=== PATIENT | female | born 1995 | race Caucasian/White ===

== ENCOUNTER 2016-08-27 19:37 | Inpatient (IN) | payer BC ==
[2016-08-27] MEDS ORDERED: CERVIDIL VG ONE (20:47)
[2016-08-27] MEDS ORDERED: LACTATED RINGERS 1,000 ML IV SCH (21:00)
[2016-08-27 21:51] LABS: Hematocrit 35.7 % (30.3-42.9); Mean Corpuscular HGB Conc 34 % (30-34); Mean Corpuscular Hemoglobin 30 pg (28-32); Mean Corpuscular Volume 90 fl (79-97); Platelet Count 209 K/mm3 (140-440); Red Blood Count 3.98 M/mm3 (3.65-5.03); Red Cell Distribution Width 13.9 % (13.2-15.2); White Blood Count 11.1 K/mm3 (4.5-11.0)
[2016-08-28] MEDS ORDERED: NARCAN 0.4 MG/1 ML IV PRN (08:30)
[2016-08-28] MEDS ORDERED: ePHEDrine SULFATE IV PRN ×2 (08:30→17:52)
--- NOTE | 2016-08-28 08:37 | History and Physical Report ---
History of Present Illness Date of examination: 08/28/16 Date of admission: 08/27/16 19:37 History of present illness: 21 yo LMP EDC 08/20/16 @ 41.1 weeks gestation, presented for induction of labor during the night. Received Cervidil during the night. Now 50/-2/vtx. First trimester entry into care at 7 weeks gestation. course complicated by morbid obesity with early GTT of 128. First trimester bleeding with spont. resolution. +Chlamydia with treatment and negative ESTHELA. Seen by [facility] for morbid obesity and limited anatomy views on U/S. Voiced good FM, denies vaginal bleeding. She is GBS negative. 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 12/29/15 Unknown Rx [Yonas Doan 10-10 mg Tablet] Vit W-Ca,Fe,FA(<1 mg) 1 each PO QDAY #30 tablet 12/29/15 Unknown Rx [ Vitamins] Active Meds: Active Medications Butorphanol Tartrate (Stadol) 2 mg IV Q2H PRN PRN Reason: Pain , Severe (7-10) Ephedrine Sulfate (Ephedrine Sulfate) 10 mg IV Q2M PRN PRN Reason: Hypotension Stop: 08/29/16 10:00 Fentanyl (Sublimaze) 100 mcg IV Q2HR PRN PRN Reason: Pain Lactated Ringer's (Lactated Ringers) 1,000 mls @ 125 mls/hr IV DIRECT MARLY Last Admin: 08/27/16 21:39 Dose: 125 mls/hr Lactated Ringer's (Lactated Ringers) 1,000 mls @ 125 mls/hr IV DIRECT MARLY Oxytocin/Sodium Chloride (Pitocin/Ns 20 Unit/1000ml Drip) 20 units in 1,000 mls @ 125 mls/hr IV DIRECT MARLY Oxytocin/Sodium Chloride (Pitocin/Ns 30 Unit/500ml) 30 units in 500 mls @ 4 mls /hr IV TITR MARLY PRN Reason: Protocol Lidocaine (Xylocaine 2%) 20 ml INFILTRATI ONCE ONE Stop: 08/28/16 09:01 Mineral Oil (Mineral Oil) 30 ml PO QHS PRN PRN Reason: Constipation Misoprostol (Cytotec) 25 mcg VAGINAL ONCE ONE Stop: 08/28/16 09:31 Misoprostol (Cytotec) 25 mcg VAGINAL ONCE ONE Stop: 08/28/16 09:31 Naloxone HCl (Narcan 0.4 Mg/1 Ml) 0.1 mg IV Q2MIN PRN PRN Reason: Res Rate </= 8 or 02 SAT < 92% Ondansetron HCl (Zofran) 4 mg IV Q8H PRN PRN Reason: Nausea And Vomiting Terbutaline Sulfate (Brethine) 0.25 mg SUB-Q ONCE PRN PRN Reason: Hyperstimulation/Hypertonicity Stop: 08/28/16 07:57 Terbutaline Sulfate (Brethine) 0.25 mg IVP ONCE PRN PRN Reason: Hyperstimulation/Hypertonicity Stop: 08/28/16 07:57 Review of Systems All systems: negative Genitourinary: normal appearance, leakage of fluid (AROM meconium fluid), contractions, no vaginal bleeding - Vital Signs Vital signs: Vital Signs Temp Pulse Resp BP Pulse Ox 97.9 F 95 H 18 121/71 97 08/27/16 20:26 08/27/16 20:26 08/27/16 20:26 08/27/16 20:26 08/27/16 20:26 Temp Pulse Resp BP Pulse Ox 97.6 F 94 H 16 127/73 95 08/28/16 08:05 08/28/16 08:21 08/28/16 08:05 08/28/16 08:05 08/28/16 08:21 - Physical Exam Breasts: Positive: deferred Abdomen: Positive: normal appearance, soft Genitourinary (Female): Positive: normal external genitalia, normal perenium Vulva: both: normal - Obstetrical FHR: category 1 Uterine Contraction Monitor Mode: External Cervical Dilatation: 3 Cervical Effacement Percentage: 50 station: -2 Uterine Contraction Frequency (min): irregular Uterine Contraction Pattern: Regular Uterine Tone Measurement Phase: Resting Uterine Contraction Intensity: Moderate Results Result Diagrams: 08/27/16 21:15 Abnormal lab results 08/27/16 Range/Units 21:15 WBC 11.1 H (4.5-11.0) K/mm3 All other labs normal. Assessment and Plan A: IUP at 41.1 weeks gestation Induction of Labor Latent labor Morbid Obesity P: AROM-meconium fluid Active chayo't Pitocin
[2016-08-28] MEDS ORDERED: XYLOCAINE 2% INFILTRATI ONE ×2 (09:00→21:53)
[2016-08-28] MEDS ORDERED: PITOCin/NS 20 UNIT/1000ML DRIP 20 UNITS/1,000 ML BAG IV SCH (09:00)
[2016-08-28] MEDS ORDERED: BRETHINE SUB-Q PRN ×2 (09:00→21:53)
[2016-08-28] MEDS ORDERED: ZOFRAN IV PRN (09:00)
[2016-08-28] MEDS ORDERED: BRETHINE IVP PRN ×2 (09:00→21:53)
[2016-08-28] MEDS ORDERED: MINERAL OIL PO PRN (09:00)
[2016-08-28] MEDS: PITOCin/NS 30 UNIT/500ML 30 UNITS/500 ML BAG IV SCH ×4 (09:23→11:51)
[2016-08-28] MEDS ORDERED: CYTOTEC VAGINAL ONE ×2 (09:30)
[2016-08-28] MEDS: LACTATED RINGERS 1,000 ML IV SCH ×2 (11:11→18:28)
[2016-08-28] MEDS: SUBLIMAZE IV PRN ×2 (11:53→16:30)
[2016-08-28] MEDS: STADOL IV PRN ×2 (13:15→14:26)
--- NOTE | 2016-08-28 13:52 | Event Note ---
Date: 08/28/16 Pain with contractions, medicated twice. Decline epidural Category 1 tracing UC: difficult to monitor secondary to maternal habitus> IUPC placed SVE 4cm/60/-2. Pitocin @ 20mu
[2016-08-28] MEDS ORDERED: fentaNYL-BUPIV 2 MCG/ML-0.125% 200 MCG/100 ML BAG EPIDURAL ONE (17:10)
[2016-08-28] MEDS ORDERED: NARCAN 2 MG/2 ML IV PRN (17:52)
--- NOTE | 2016-08-28 17:52 | Anesthesia Consultation ---
Anesthesia Consult and Med Hx Date of service: 08/28/16 - Airway Anesthetic Teeth Evaluation: Good ROM Head & Neck: Adequate Mental/Hyoid Distance: Adequate Mallampati Class: Class II Intubation Access Assessment: Possibly Difficult - Pulmonary Exam CTA: Yes - Cardiac Exam Cardiac Exam: RRR - Pre-Operative Health Status ASA Pre-Surgery Classification: ASA3 Proposed Anesthetic Plan: Epidural (labor epidural - primary ) - Pulmonary Hx Asthma: No COPD: No Hx Pneumonia: No - Cardiovascular System Hx Hypertension: No - Central Nervous System Hx Seizures: No Hx Psychiatric Problems: No - Endocrine Hx Renal Disease: No Hx End Stage Renal Disease: No Hx Hypothyroidism: No Hx Hyperthyroidism: No - Hematic Hx Anemia: No Hx Sickle Cell Disease: No - Other Systems Hx Alcohol Use: Yes Hx Obesity: Yes (morbid obesity)
[2016-08-28] MEDS ORDERED: fentaNYL-BUPIV 2 MCG/ML-0.125% 200 MCG/100 ML BAG EPIDURAL SCH (18:00)
[2016-08-28] MEDS ORDERED: LACTATED RINGERS 1,000 ML IV SCH (22:00)
--- NOTE | 2016-08-28 22:25 | Event Note ---
Date: 08/28/16 Pt comfortable with epidural. Category II tracing with FHT 180 with minimal variability and early decels. SVE: 10/100/0. Contractions q 2-4 minutes. Resuscitative measures performed including fluid bolus and oxygen supplementation. Closely monitor maternal and status.
[2016-08-28] MEDS ORDERED: PEPCID IV ONE (22:51)
[2016-08-28] MEDS ORDERED: BICITRA ONE (22:51)
[2016-08-28] MEDS ORDERED: REGLAN ONE (22:51)
--- NOTE | 2016-08-28 22:57 | Anesthesia Day of Surgery ---
Anesthesia Day of Surgery - Day of Surgery Patient Examined: Yes Patient H&P Reviewed: Yes Patient is NPO: Yes
[2016-08-28] MEDS ORDERED: MORPHINE ONE ×2 (23:01)
[2016-08-28] MEDS ORDERED: XYLOCAINE MPF 2% ONE ×2 (23:01→23:39)
[2016-08-28] MEDS ORDERED: NACL 0.9% IR ONE (23:10)
[2016-08-28] MEDS ORDERED: WATER FOR IRRIG STERILE IR ONE (23:10)
[2016-08-28] MEDS ORDERED: ZOFRAN ONE (23:24)
[2016-08-28] MEDS ORDERED: VERSED ONE (23:57)
[2016-08-29] MEDS ORDERED: SUBLIMAZE ONE ×2 (00:03→00:08)
[2016-08-29] MEDS ORDERED: XYLOCAINE MPF 2% ONE (00:04)
--- NOTE | 2016-08-29 01:03 | Procedure Note ---
OB Delivery Note - Delivery Date of Delivery: 08/29/16 Surgeon: NINO MCGEE Estimated blood loss: other (1200 mL) - Section Preop diagnosis: arrest of descent, nonreassuring FHR tracing Postop diagnosis: same section procedure: section, primary low transverse Disposition: PACU Complications: intra-op hemorrhage, uterine atony - A at 1 minute: 2 at 5 minutes: 2 Infant Gender: Male
--- NOTE | 2016-08-29 01:04 | Operative Report ---
Operative Report Operative Report: Date of procedure: August 28, 2016 Preoperative diagnosis: 1) IUP at 41w1d 2) Tachycardia 3) Arrest of Descent 4) Morbid Obesity Postoperative diagnosis: Same 5) Cephalopelvic disproportion Procedure: Primary low transverse section Surgeon: Dayna Parry M.D. Anesthesia: Epidural Findings: 1) Viable male , Apgars 2 and 2, weight pending. Occiput posterior, neck extended; nuchal cord x 1 2) Normal-appearing uterus ovaries and tubes Estimated blood loss: 1200 mL Drains: [place] to gravity Specimens: Placenta to pathology Complications:Uterine atony requiring additional 20 units of pitocin in the IVFs Disposition: Stable to PACU Indication for procedure: Pt is a 21 year old at 41w1d who was admitted on 08/27/16 for induction of labor secondary to postdates. She progressed to complete through a protracted labor course, but arrested at 0 station. Both fetus and mother were noted to be tachycardic so the decision was made to proceed with primary delivery. Operation in detail: After the risks, benefits, alternatives and complications were explained to the patient she gave informed consent for the procedure. She was subsequently taken to the operating room where epidural anesthesia was noted to be adequate. She was subsequently placed in the dorsal supine position with leftward tilt and prepped and draped in a normal sterile fashion. heart tones were noted to be in the 180s prior to incision. A timeout was performed. A Pfannenstiel skin incision was made with the knife and carried down to the layer of the fascia with the Bovie. The fascia was incised in the midline and the fascial incision was extended bilaterally with the Bovie. Attention was then turned to the superior aspect of the incision which was grasped with two Kochers, tented up, and dissected off the rectus muscles. Attention was then turned to the inferior aspect of the incision which was grasped with two Kochers , tented up and dissected off the rectus muscles. The rectus muscles were then in the midline and partially transected for adequate visualization. The peritoneum was then entered sharply between to Steff clamps. The peritoneal incision was extended with good visualization of the bladder. The peritoneal incision was then stretched. An Renaldo self-retaining retractor was placed for visualization. The bladder blade was placed. The vesicouterine peritoneum was grasped with smooth pickups and incised with Metzenbaum scissors. Metzenbaum scissors were used to extend the incision bilaterally. The bladder flap was then created digitally and the bladder blade was replaced. A transverse incision was made in the lower uterine segment with a knife and extended bilaterally with the bandage scissors. Multiple attempts were made to deliver the head without success. The uterus was incised in a vertical fashion and the skin incision was extended with the knife. A vaginal hand was used in an attempt to elevate the head. Dr. Martha Patel was called in to assist with the case. After multiple attempts, the 's head was delivered followed by shoulders and body. The cord was clamped and cut and the was handed to NICU staff in attendance. Cord blood was collected. The placenta was then delivered manually. The uterus was then cleared of all clots and debris. The hysterotomy was then reapproximated with 0 Vicryl in a running locked fashion. A second layer of the same suture was used in imbricating fashion. The vertical extension of the incision was reapproximated wtih 0-Vicryl in a running locked fashion. The hysterotomy was inspected and hemostasis was noted. The Renaldo self-retaining retractor was removed. The gutters were irrigated and cleared of all clots and debris. The hysterotomy was again inspected and noted to be hemostatic. Surgicel was placed over the hysterotomy. The peritoneum was reapproximated with 2-0 Vicryl in a running fashion. The rectus muscles were then reapproximated with 2-0 Vicryl in an interrupted fashion and covered with Surgicel. The fascia was reapproximated with 0 Vicryl in a running fashion. The subcutaneous fat was reapproximated with 3-0 Vicryl in a running fashion. The skin was reapproximated with 4-0 Vicry in a subcuticular fashion. The incision was then covered with steri strips and a pressure dressing. The procedure was then ended. The patient tolerated the procedure well and was taken to the PACU in stable condition. All instrument, lap, and needle counts were correct 3.
--- NOTE | 2016-08-29 01:23 | Post Anesthesia Evaluation ---
- Post Anesthesia Evaluation Patient Participated: Yes Airway Patent: Yes Stable Respiratory Function: Yes Nausea/Vomiting: No Temp > 96.8F: Yes Pain Manageable: Yes Adequeate Hydration: Yes Anesthesia Complications: No Block Receding Appropriately: Yes Patient on Ventilator: No
[2016-08-29] MEDS ORDERED: DILAUDID IV PRN (01:24)
[2016-08-29] MEDS ORDERED: NORCO 7.5/325 PO PRN (01:24)
[2016-08-29] MEDS: CLEOCIN 900 MG/50 mL 900 MG/50 ML BAG IV SCH ×3 (03:00→20:18)
[2016-08-29] MEDS: POLYCILLIN/NS 2 GM/100 ML 2 GM/100 ML BAG IV SCH ×4 (03:00→21:13)
[2016-08-29] MEDS ORDERED: GARAMYCIN/NS 80 MG/100 ML 100 ML IV SCH (03:00)
[2016-08-29 04:08] LABS: Hematocrit 32.6 % (30.3-42.9); Hemoglobin 10.9 gm/dl (10.1-14.3); Mean Corpuscular HGB Conc 33 % (30-34); Mean Corpuscular Hemoglobin 30 pg (28-32); Mean Corpuscular Volume 90 fl (79-97); Platelet Count 203 K/mm3 (140-440); Red Blood Count 3.61 M/mm3 (3.65-5.03); Red Cell Distribution Width 13.7 % (13.2-15.2)
[2016-08-29 04:14] LABS: White Blood Count 28.8 K/mm3 (4.5-11.0)
[2016-08-29 04:17] LABS: INR 1.1 (0.87-1.13); Partial Thromboplastin Time 28.8 Sec. (24.2-36.6)
[2016-08-29] MEDS: GARAMYCIN 140 MG in NACL 0.9% 100 ML IV SCH ×2 (04:50→22:32)
[2016-08-29 06:45] LABS: Basophils % (Manual) 0 % (0.0-1.8); Blastocytes % (Manual) 0 %; Eosinophils % (Manual) 0 % (0.0-4.3); Platelet Estimate Consistent w Auto
[2016-08-29 06:46] LABS: Diff Status Complete
--- NOTE | 2016-08-29 08:30 | Event Note ---
Date: 08/29/16 Attempted to visit patient and family this morning. Bopth FOB and patient resting and snoring with eyes closed. Will attempt when awake or on lunch break.
--- NOTE | 2016-08-29 09:13 | Progress Note ---
Assessment and Plan VSS AF PP H/H: A: Stable 9 hrs PO primary caesarean section Anemia P: Routine orders Subjective - Subjective Date of service: 08/29/16 Interval history: 21 yo LMP EDC 08/20/16 @ 41.1 weeks gestation, presented for induction of labor during the night. Received Cervidil during the night. Now 350/-2/vtx. First trimester entry into care at 7 weeks gestation. course complicated by morbid obesity with early GTT of 128. First trimester bleeding with spont. resolution. +Chlamydia with treatment and negative ESTHELA. Seen by [facility] for morbid obesity and limited anatomy views on U/S. Voiced good FM, denies vaginal bleeding. She is GBS negative. Patient reports: appetite normal, pain well controlled (tai present and patent. No up at time of visit or ambulating), no flatus, no ambulating normally , no nauseated [place]: in NICU Objective - Vital Signs Latest vital signs: Vital Signs Temp Pulse Pulse Resp BP BP Pulse Ox 08/29/16 04:10 99.1 F 119 H 20 127/74 08/29/16 02:15 132 H 20 121/71 95 08/29/16 02:00 127 H 20 119/66 95 08/29/16 01:45 132 H 20 119/70 95 08/29/16 01:34 20 08/29/16 01:25 129 H 20 136/78 94 08/29/16 01:20 98.8 F 127 H 20 134/79 98 08/29/16 01:15 121 H 20 144/80 98 08/29/16 01:13 100.3 F H 124 H 24 141/79 98 08/28/16 22:58 138 H 98 08/28/16 22:53 132 H 100 08/28/16 22:48 132 H 100 08/28/16 22:43 125 H 100 08/28/16 22:38 118 H 99 08/28/16 22:33 127 H 100 08/28/16 22:32 132 H 87 08/28/16 22:30 98.9 F 122 H 18 100 08/28/16 22:28 122 H 100 08/28/16 22:23 117 H 100 08/28/16 22:18 115 H 100 08/28/16 22:13 110 H 100 08/28/16 22:09 114 H 135/68 08/28/16 22:08 117 H 100 08/28/16 22:06 125 H 144/92 08/28/16 22:03 120 H 100 08/28/16 21:58 130 H 100 08/28/16 21:53 125 H 100 08/28/16 21:48 126 H 100 08/28/16 21:43 128 H 98 08/28/16 21:38 118 H 98 08/28/16 21:33 117 H 99 08/28/16 21:28 113 H 100 08/28/16 21:23 116 H 100 08/28/16 21:18 112 H 99 08/28/16 21:13 112 H 100 08/28/16 21:08 112 H 100 08/28/16 21:03 112 H 100 08/28/16 20:58 113 H 100 08/28/16 20:53 111 H 100 08/28/16 20:48 104 H 100 08/28/16 20:43 109 H 99 08/28/16 20:38 106 H 98 08/28/16 20:33 108 H 100 08/28/16 20:28 115 H 98 08/28/16 20:23 112 H 99 08/28/16 20:18 101 H 100 08/28/16 20:13 101 H 98 08/28/16 20:08 104 H 96 08/28/16 20:03 98 H 97 08/28/16 19:58 98 H 97 08/28/16 19:53 93 H 97 08/28/16 19:48 100 H 97 08/28/16 19:43 99 H 96 08/28/16 19:38 105 H 96 08/28/16 19:33 98 H 97 08/28/16 19:28 95 H 96 08/28/16 19:23 95 H 96 08/28/16 19:19 98.5 F 97 H 18 148/84 97 08/28/16 19:18 100 H 96 08/28/16 19:13 96 H 96 08/28/16 19:08 99 H 95 08/28/16 19:04 99 H 94 08/28/16 19:03 95 H 95 08/28/16 18:58 101 H 94 08/28/16 18:57 99 H 94 08/28/16 18:53 98 H 95 08/28/16 18:48 99 H 95 08/28/16 18:44 103 H 94 08/28/16 18:43 101 H 95 08/28/16 18:38 100 H 96 08/28/16 18:33 100 H 96 08/28/16 18:28 96 H 95 08/28/16 18:23 105 H 96 08/28/16 18:18 97 H 95 08/28/16 18:13 104 H 95 08/28/16 18:08 107 H 96 08/28/16 18:04 111 H 148/84 08/28/16 18:03 116 H 96 08/28/16 18:01 94 H 68 L 08/28/16 17:58 104 H 97 08/28/16 17:56 108 H 94 08/28/16 17:53 105 H 96 08/28/16 17:49 105 H 94 08/28/16 17:48 108 H 96 08/28/16 17:43 115 H 95 08/28/16 17:38 120 H 96 08/28/16 17:34 110 H 121/72 94 08/28/16 17:33 117 H 96 08/28/16 17:09 104 H 97 08/28/16 17:04 105 H 98 08/28/16 16:59 106 H 86 08/28/16 16:54 109 H 93 08/28/16 16:53 105 H 94 08/28/16 16:49 99 H 96 08/28/16 16:44 99 H 95 08/28/16 16:43 97 H 94 08/28/16 16:39 104 H 93 08/28/16 16:37 105 H 94 08/28/16 16:34 106 H 95 08/28/16 16:30 101 H 18 94 08/28/16 16:29 108 H 95 08/28/16 16:24 105 H 96 08/28/16 16:22 104 H 94 08/28/16 16:19 104 H 96 08/28/16 16:16 111 H 94 08/28/16 16:14 99 H 96 08/28/16 16:11 97 H 93 08/28/16 16:09 107 H 96 08/28/16 16:04 107 H 96 08/28/16 16:02 102 H 94 08/28/16 15:59 105 H 96 08/28/16 15:54 105 H 95 08/28/16 15:53 68 76 L 08/28/16 15:47 104 H 96 08/28/16 15:46 101 H 94 08/28/16 15:42 107 H 97 08/28/16 15:37 106 H 97 08/28/16 15:32 111 H 94 08/28/16 15:27 102 H 97 08/28/16 15:26 103 H 93 08/28/16 15:22 101 H 96 08/28/16 15:17 103 H 97 08/28/16 15:12 107 H 98 08/28/16 15:10 115 H 94 08/28/16 15:07 114 H 98 08/28/16 15:02 116 H 97 08/28/16 14:57 105 H 96 08/28/16 14:52 112 H 97 08/28/16 14:48 105 H 93 08/28/16 14:47 104 H 95 08/28/16 14:42 111 H 92 08/28/16 14:37 107 H 93 08/28/16 14:36 102 H 94 08/28/16 14:32 106 H 95 08/28/16 14:28 106 H 94 08/28/16 14:27 108 H 95 08/28/16 14:26 18 08/28/16 14:23 106 H 94 08/28/16 14:22 101 H 97 08/28/16 14:17 100 H 96 08/28/16 14:13 105 H 94 08/28/16 14:12 101 H 95 08/28/16 14:07 97.9 F 85 18 125/88 86 08/28/16 14:02 108 H 93 08/28/16 13:59 104 H 94 08/28/16 13:57 109 H 93 08/28/16 13:54 106 H 94 08/28/16 13:52 106 H 95 08/28/16 13:48 109 H 94 08/28/16 13:47 104 H 96 08/28/16 13:45 18 08/28/16 13:42 96 H 97 08/28/16 13:40 104 H 94 08/28/16 13:37 103 H 96 08/28/16 13:32 105 H 94 08/28/16 13:31 108 H 94 08/28/16 13:27 107 H 94 08/28/16 13:25 108 H 94 08/28/16 13:22 108 H 92 08/28/16 13:19 108 H 94 08/28/16 13:17 109 H 93 08/28/16 13:15 18 08/28/16 13:14 106 H 94 08/28/16 13:12 106 H 94 08/28/16 13:07 102 H 94 08/28/16 13:02 104 H 93 08/28/16 13:01 101 H 116/66 93 08/28/16 12:57 101 H 96 08/28/16 12:52 99 H 97 08/28/16 12:47 102 H 96 08/28/16 12:42 97 H 96 08/28/16 12:37 102 H 96 08/28/16 12:32 97 H 94 08/28/16 12:27 99 H 94 08/28/16 12:26 100 H 94 08/28/16 12:22 104 H 95 08/28/16 12:21 98 H 94 08/28/16 12:17 100 H 94 08/28/16 12:13 98 H 94 08/28/16 12:12 99 H 95 08/28/16 12:07 99 H 95 08/28/16 12:02 102 H 95 08/28/16 12:01 100 H 94 08/28/16 11:57 109 H 95 08/28/16 11:56 102 H 94 08/28/16 11:53 18 08/28/16 11:52 95 H 96 08/28/16 11:51 101 H 94 08/28/16 11:47 102 H 96 08/28/16 11:42 91 H 97 08/28/16 11:34 99 H 93 08/28/16 11:32 111 H 96 08/28/16 11:27 96 H 95 08/28/16 11:22 97 H 96 08/28/16 11:17 104 H 95 08/28/16 11:16 100 H 94 08/28/16 11:12 95 H 98 08/28/16 11:08 98 H 94 08/28/16 11:07 96 H 94 08/28/16 11:02 90 133/73 96 08/28/16 10:57 95 H 97 08/28/16 10:52 100 H 96 08/28/16 10:47 104 H 97 08/28/16 10:42 97 H 96 08/28/16 10:37 101 H 97 08/28/16 10:32 104 H 95 08/28/16 10:27 105 H 94 08/28/16 10:22 94 H 94 08/28/16 10:16 105 H 96 08/28/16 10:12 106 H 94 08/28/16 10:11 109 H 95 08/28/16 10:06 108 H 96 08/28/16 10:01 110 H 97 08/28/16 09:56 99 H 96 08/28/16 09:51 106 H 97 08/28/16 09:46 98 H 96 08/28/16 09:41 110 H 96 08/28/16 09:36 97 H 97 08/28/16 09:31 98 H 97 08/28/16 09:26 102 H 97 08/28/16 09:22 109 H 126/75 94 08/28/16 09:21 110 H 97 08/28/16 09:16 111 H 97 08/28/16 09:11 101 H 98 Intake and Output 08/28/16 08/29/16 08/29/16 22:59 06:59 14:59 Intake Total 1240 2525 Output Total 350 1000 Balance 890 1525 Intake: IV 1000 2525 Garamycin 140 mg In NaCl 100 0.9% 100 ml @ 200 mls/hr IV Q8H MARLY Rx#:[id number] Lactated Ringers 1,000 ml 1000 @ 125 mls/hr IV DIRECT MARLY Rx#:[id number] PITOCin/NS 20 UNIT/1000ML 125 DRIP 20 units In 1,000 ml @ 125 mls/hr IV DIRECT MARLY Rx#:[id number] Oral 240 Output: Urine 350 1000 Uretheral (Tai) 400 Void 350 Other: Total, Intake Amount 240 Total, Output Amount 350 Estimated Blood Loss 1,500 - Exam Breasts: Present: deferred Cardiovascular: Present: Regular rate Lungs: Present: Normal air movement Abdomen: Present: normal appearance, soft. Absent: distention, tenderness Uterus: Present: normal, firm, fundal height below umbilicus (3 below U, ML). Absent: bogginess, tenderness Extremities: Present: normal, edema (trace) Incision: Present: normal, dry, intact, dressed - Labs Labs: Abnormal lab results 08/29/16 Range/Units 03:30 WBC 28.8 H (4.5-11.0) K/mm3 RBC 3.61 L (3.65-5.03) M/mm3 Seg Neuts % (Manual) 81.0 H (40.0-70.0) % Lymphocytes % (Manual) 4.0 L (13.4-35.0) % Seg Neutrophils # Man 23.3 H (1.8-7.7) K/mm3
[2016-08-29] MEDS ORDERED: MOTRIN PO PRN (09:30)
[2016-08-29] MEDS: TORADOL IV SCH ×2 (11:21→17:42)
--- NOTE | 2016-08-29 15:13 | Progress Note ---
Subjective Date of service: 08/29/16 Interval history: 1st POD after Patient is her the room, comfortable. Pain is mostly controlled with pain meds. Ambulated well. No residual neurological deficit. No pruritus. No anesthesia complications. Baby still in NICU in critical condition Objective - Constitutional Vitals: Vital Signs - 12hr 08/29/16 08/29/16 08/29/16 04:10 09:35 11:57 Temperature 99.1 F 98.2 F 98.4 F Pulse Rate [ 119 H 120 H 135 H Left From Monitor] Respiratory 20 20 18 Rate Blood Pressure 127/74 104/50 104/65 [Left Arm] - Labs CBC & Chem 7: 08/29/16 03:30 Labs: Abnormal lab results 08/29/16 Range/Units 03:30 WBC 28.8 H (4.5-11.0) K/mm3 RBC 3.61 L (3.65-5.03) M/mm3 Seg Neuts % (Manual) 81.0 H (40.0-70.0) % Lymphocytes % (Manual) 4.0 L (13.4-35.0) % Seg Neutrophils # Man 23.3 H (1.8-7.7) K/mm3
[2016-08-29] MEDS: FEOSOL PO SCH ×2 (16:06→21:13)
[2016-08-30] MEDS: TORADOL IV SCH ×2 (00:10→05:16)
[2016-08-30] MEDS: POLYCILLIN/NS 2 GM/100 ML 2 GM/100 ML BAG IV SCH ×2 (04:15→13:00)
[2016-08-30] MEDS: CLEOCIN 900 MG/50 mL 900 MG/50 ML BAG IV SCH ×2 (05:19→14:13)
[2016-08-30] MEDS: GARAMYCIN 140 MG in NACL 0.9% 100 ML IV SCH (05:48)
[2016-08-30 08:36] LABS: Hematocrit 24.9 % (30.3-42.9); Hemoglobin 8.2 gm/dl (10.1-14.3)
--- NOTE | 2016-08-30 08:45 | Progress Note ---
Assessment and Plan O: VSS AF PP H/H: 10.9/32.6 A: Stable POD #1 in NICU P: Continue PP orders Subjective - Subjective Date of service: 08/30/16 Interval history: 21 yo LMP EDC 08/20/16 @ 41.1 weeks gestation, presented for induction of labor during the night. Received Cervidil during the night. Now 350/-2/vtx. First trimester entry into care at 7 weeks gestation. course complicated by morbid obesity with early GTT of 128. First trimester bleeding with spont. resolution. +Chlamydia with treatment and negative ESTHELA. Seen by [facility] for morbid obesity and limited anatomy views on U/S. Voiced good FM, denies vaginal bleeding. She is GBS negative. Patient reports: appetite normal, voiding normally, pain well controlled, ambulating normally, other (tearful), no flatus [place]: in NICU (remains on vent, family counseled to remove life support) Objective - Vital Signs Latest vital signs: Vital Signs Temp Pulse Resp BP 08/30/16 00:30 98.5 F 115 H 18 103/50 08/29/16 20:15 99.0 F 119 H 18 109/57 08/29/16 16:25 98.4 F 115 H 18 102/50 08/29/16 11:57 98.4 F 135 H 18 104/65 08/29/16 09:35 98.2 F 120 H 20 104/50 Intake and Output 08/29/16 08/30/16 08/30/16 22:59 06:59 14:59 Intake Total 715 553.5 Output Total 400 Balance 315 553.5 Intake: IV 475 313.5 CLEOCIN 900 MG/50 mL 900 50 mg In 50 ml @ 100 mls/hr IV Q8H [facility] Rx#:[id number] Garamycin 140 mg In NaCl 103.5 0.9% 100 ml @ 200 mls/hr IV Q8H [facility] Rx#:[id number] Garamycin/Ns 80 mg/100 ml 100 100 ml @ 200 mls/hr IV PKCONSULT MARLY Rx#: [id number] Lactated Ringers 1,000 ml 125 210 @ 125 mls/hr IV DIRECT MARLY Rx#:[id number] POLYCILLIN/NS 2 GM/100 ML 200 2 gm In 100 ml @ 100 mls /hr IV Q6H MARLY Rx#: [id number] Oral 240 240 Output: Urine 400 Void 400 Other: Total, Intake Amount 120 120 Total, Output Amount 400 # Voids Void 1 1 - Exam Breasts: Present: deferred Cardiovascular: Present: Regular rate Abdomen: Present: normal appearance, soft. Absent: distention Uterus: Present: normal, firm, fundal height below umbilicus. Absent: bogginess Extremities: Present: normal. Absent: edema Incision: Present: normal, dry, intact - Labs Labs: Abnormal lab results 08/30/16 Range/Units 07:59 Hgb 8.2 L (10.1-14.3) gm/dl Hct 24.9 L D (30.3-42.9) %
--- NOTE | 2016-08-30 09:31 | Event Note ---
Date: 08/30/16 Dr Parry and Kim Kim spoke with patient and her partner regarding her delivery. All questions answered.
[2016-08-30] MEDS: PERCOCET 5/325 PO PRN (14:41)
[2016-08-30] MEDS: FEOSOL PO SCH (22:00)
[2016-08-31] MEDS: TORADOL IV SCH ×2 (06:29)
[2016-08-31] MEDS: FEOSOL PO SCH (10:00)
[2016-08-31] MEDS: PERCOCET 5/325 PO PRN (12:55)
--- NOTE | 2016-08-31 15:59 | Progress Note ---
Assessment and Plan - Patient Problems (1) of infant Current Visit: Yes Status: Acute Plan to address problem: routine postoperative care discharge home tomorrow if patient meets criteria Subjective - Subjective Date of service: 08/31/16 Interval history: The patient has been in the ICU most of the day. Earlier this morning we received report that the infant had . The patient denies nausea however has had limited appetite. Condolescences offered to family. Reports incisional pain at times. Patient has voided. Patient reports: voiding normally, no appetite normal [place]: Objective - Vital Signs Latest vital signs: Vital Signs Temp Pulse Resp BP 08/31/16 09:00 0 F L 0 L 0 L 0/0 08/31/16 04:05 98.6 F 106 H 20 123/62 08/31/16 00:00 98.3 F 102 H 20 118/63 08/30/16 20:45 98.9 F 114 H 20 110/65 Intake and Output 08/31/16 08/31/16 08/31/16 06:59 14:59 22:59 Intake Total 240 Balance 240 Intake: Oral 240 Other: Total, Intake Amount 240 Voiding Method Toilet # Voids Void 1 1 - Exam Abdomen: Present: normal appearance, soft
[2016-09-01] MEDS: TORADOL IV SCH ×2 (06:42)
--- NOTE | 2016-09-01 07:56 | Discharge Summary ---
Providers - Providers Date of Admission: 08/27/16 19:37 Date of discharge: 09/01/16 Attending physician: MOISES PERDUE MD Primary care physician: MOISES PERDUE MD Hospitalization Reason for admission: induction of labor Delivery: Procedure: section, primary low transverse complications: other ( demise) Hospital course: Patient admitted to L&D for induction for postdates. Intrapartum complicated by arrest disorder. Patient taken for delivery that was complicated by dystocia and inability to deliver the . Please see details of surgery in op note. The infant was significantly compromised and subsequently on day 2 of life. Condition at discharge: Fair Disposition: DISCHARGED TO HOME OR SELFCARE - Discharge Diagnoses (1) of Status: Acute Plan - Discharge Medications Prescriptions: Docusate Sodium [Colace] 100 mg PO BID PRN #60 capsule PRN Reason: Constipation Ibuprofen [Motrin] 800 mg PO Q8HR PRN #60 tablet PRN Reason: Pain Oxycodone HCl/Acetaminophen [Percocet 10/325 mg] 1 each PO Q6HR PRN #45 tablet PRN Reason: Pain - Provider Discharge Summary Activity: no sex for 6 weeks, no heavy lifting 4 weeks, no strenuous exercise Diet: routine Instructions: routine Additional instructions: [] Smoking cessation referral if applicable(refer to patient education folder for contact #) [] Refer to [facility] Booklet Call your doctor immediately for: * Fever > 100.5 * Heavy vaginal bleeding ( >1 pad per hour) * Severe persistent headache * Shortness of breath * Reddened, hot, painful area to leg or breast * Drainage or odor from incision. * Keep incision clean and dry at all times and follow doctor's instructions regarding bathing/showering followup in one week for incision check with Dr Parry - Follow up plan Follow up: MOISES PERDUE MD [Primary Care Provider] - 7 Days Forms: Work/School Release Form
[2016-09-01 09:04] VITALS: BP 127/76
[2016-09-01] MEDS: PERCOCET 5/325 PO PRN (09:13)
[2016-09-01] MEDS: FEOSOL PO SCH ×2 (12:25)
[2016-09-01] MEDS ORDERED: MILK OF MAGNESIA PO PRN (12:27)
== END 2016-09-01 14:00 | disposition home or self-care (01) | DRG 765 ==
LOC: LD 19:37 → APU 08-29 01:05 → OB 08-29 04:23
PROVIDERS: ADMIT Obstetrics & Gynecology; ATTEND Obstetrics & Gynecology
PROC: 10D00Z1 Extraction of Products of Conception, Low, Open Approach (ICD-10-PCS; principal; 2016-08-27)
DX: O48.0 Post-term pregnancy (principal); Z68.42 Body mass index [BMI] 45.0-49.9, adult; O65.4 Obstructed labor due to fetopelvic disproportion, unspecified; O76 Abnormality in fetal heart rate and rhythm complicating labor and delivery; O99.214 Obesity complicating childbirth; E66.01 Morbid (severe) obesity due to excess calories; O77.0 Labor and delivery complicated by meconium in amniotic fluid; O62.1 Secondary uterine inertia; O62.2 Other uterine inertia; Z3A.41 41 weeks gestation of pregnancy; Z37.0 Single live birth
CPT/HCPCS: 36415; 59200; 85007; 85014; 85018; 85025; 85027; 85610; 85730; 86850; 86900; 86901; 88307; J0290; J0595; J1170; J1580; J1885; J2250; J2270; J2405; J2590; J2765; J3010; J7120